=== PATIENT | female | born 1950 | race Caucasian/White ===

== ENCOUNTER 2017-11-09 23:46 | Inpatient (IN) | payer MEDICARE, BC ==
[~2017-11-09] VITALS: Ht 157.5 cm; Wt 48.0 kg
[~2017-11-09 23:46] MED LIST: ASPI-1053 PO; ATOR10TA PO; BACL20TA PO; ESTR2TAB6 PO; FLUO20CA39 PO; GABA600T2 PO; MULT-1179 PO; PANT20TA3 PO; POTA99TA18 PO; TRAZ50TA54 PO
[2017-11-10] VITALS (24 sets, daily range): BP systolic 94–139; BP diastolic 50–79
[2017-11-10] MEDS ORDERED: ondansetron/PF 4mg/2ml inj IV ONE (00:10)
[2017-11-10] MEDS: morphine 2 MG/ML inj. syringe IV PRN ×3 (00:37→11:55)
[2017-11-10 00:52] LABS: PARTIAL THROMBOPLASTIN TIME 25 SECONDS (22-32); PROTHROMBIN TIME 10.4 SECONDS (9.0-12.0)
[2017-11-10 00:55] LABS: ANION GAP 6 (8-16); CHLORIDE 106 MMOL/L (99-107); GLUCOSE 89 MG/DL (70-104); POTASSIUM 4.1 MMOL/L (3.5-5.1); SODIUM 141 MMOL/L (135-145); TOTAL CARBON DIOXIDE 28.6 MMOL/L (24-32)
[2017-11-10 00:56] LABS: ALANINE AMINOTRANSFERASE 22 U/L (12-78); ALBUMIN 3.2 G/DL (3.4-5.0); ALKALINE PHOSPHATASE 68 IU/L (46-116); ASPARTATE AMINO TRANSFERASE 22 U/L (10-37); BILIRUBIN,TOTAL 0.2 MG/DL (0.1-1.0); BLOOD UREA NITROGEN 16 MG/DL (7-18); BUN/CREATININE RATIO 17.8 (6.6-38.0); CALCIUM 8.1 MG/DL (8.5-10.1); TOTAL PROTEIN 6.3 G/DL (6.4-8.2); eGFR 63 ML/MIN
[2017-11-10 00:57] LABS: BASOPHILS % (AUTO) 0.4 % (0-1); EOSINOPHILS # (AUTO) 0.2 X10'3 (0-0.9); EOSINOPHILS % (AUTO) 1.9 % (0-6); HEMATOCRIT 36.4 % (35.0-45.0); HEMOGLOBIN 12.1 g/dl (12.0-16.0); LYMPHOCYTES # (AUTO) 1.7 X10'3 (1.1-4.8); LYMPHOCYTES % (AUTO) 18.1 % (21-51); MEAN CORPUSCULAR HEMOGLOBIN 31.3 PG (27.0-31.0); MEAN CORPUSCULAR HGB CONC 33.4 % (33.0-36.5); MEAN CORPUSCULAR VOLUME 93.7 FL (78-98); MEAN PLATELET VOLUME 9.1 FL (7.4-10.4); MONOCYTES # (AUTO) 0.7 X10'3 (0-0.9); MONOCYTES % (AUTO) 7.6 % (2-12); NEUTROPHILS # (AUTO) 6.6 X10'3 (1.8-7.7); PLATELET COUNT 218 X10'3 (140-440); RED BLOOD COUNT 3.88 X10'6 (4.20-5.60); RED CELL DISTRIBUTION WIDTH 13.3 % (11.5-14.5); WHITE BLOOD COUNT 9.2 X10'3 (4.5-11.0)
[2017-11-10] MEDS ORDERED: heparin 10,000 units/1 ML INJ IV PRN (02:30)
[2017-11-10] MEDS ORDERED: heparin 10,000 units/1 ML INJ IV ONE (02:30)
[2017-11-10] MEDS ORDERED: normal saline 1000ml 1,000 ML IV SCH (02:41)
[2017-11-10] MEDS ORDERED: mag hydrox/Alum hydrox/simeth 30ml oral suspension PO PRN (02:45)
[2017-11-10] MEDS ORDERED: diphenhydrAMINE 25mg capsule PO PRN (02:45)
[2017-11-10] MEDS ORDERED: acetaminophen 325mg tablet PO PRN ×2 (02:45)
[2017-11-10] MEDS ORDERED: HYDROmorphone 1 mg/ml syringe IV PRN ×2 (02:45)
[2017-11-10] MEDS ORDERED: metoclopramide 5 mg/ml inj IV PRN (02:45)
[2017-11-10] MEDS ORDERED: bisacodyl 10mg suppository rectal RC PRN (02:45)
[2017-11-10] MEDS ORDERED: diphenhydrAMINE 50 mg/ml inj IV PRN (02:45)
[2017-11-10] MEDS ORDERED: HYDROcodone/acetaminophen 5mg/325mg tablet PO PRN (02:45)
[2017-11-10] MEDS ORDERED: acetaminophen 650mg rectal suppository RC PRN (02:45)
[2017-11-10] MEDS ORDERED: magnesium hydroxide 30ml (MOM) UD suspension PO PRN (02:45)
[2017-11-10] MEDS ORDERED: ondansetron/PF 4mg/2ml inj IV PRN (02:45)
[2017-11-10] MEDS ORDERED: morphine 2 MG/ML inj. syringe IV PRN ×2 (02:45)
[2017-11-10 03:20] LABS: MAGNESIUM 1.7 MG/DL (1.5-2.4)
[2017-11-10] MEDS ORDERED: LIDOcaine 1% 30ml vial 30 ML ONE (06:08)
[2017-11-10] MEDS ORDERED: iohexol 350MG/ML 100ml bottle IV ONE (06:09)
[2017-11-10] MEDS ORDERED: heparin 1,000 UNITS/NS 500ml 500 ML ONE (06:09)
[2017-11-10] MEDS ORDERED: fentaNYL/PF 50MCG/1 ML 2ML syringe ONE (06:23)
[2017-11-10] MEDS ORDERED: midazolam 2 mg/2 ml injection ONE (06:23)
[2017-11-10 06:29] LABS: CLARITY,URINE SLIGHTLY CLOUDY (Clear); COLOR,URINE YELLOW (Yellow); GLUCOSE, URINE NEGATIVE (Neg); KETONES,URINE NEGATIVE (Neg); LEUKOCYTE ESTERASE ,URINE NEGATIVE (Neg); NITRITES, URINE NEGATIVE (Neg); OCCULT BLOOD,URINE NEGATIVE (Neg); PH,URINE 5.5 (4.8-8.0); PROTEIN,URINE NEGATIVE (Neg); UROBILINOGEN,URINE 0.2 E.U/dL (0.2-1.0)
[2017-11-10 06:37] LABS: UA COLLECTION TYPE CLN CATCH MIDSTREAM
[2017-11-10 06:39] LABS: BACTERIA,URINE 2+ /HPF (Neg); MUCUS STRANDS FEW /LPF (Neg); RBC,URINE 0-2 /HPF (0-2); SQUAMOUS EPITHELIAL CELL,UR MANY /LPF (FEW); WBC,URINE 0-4 /HPF (0-4)
[2017-11-10] MEDS ORDERED: heparin 1,000unit/ml 10ml vial 10 ML ONE (06:45)
[2017-11-10] MEDS ORDERED: OXAZEpam 15mg capsule PO PRN (07:35)
[2017-11-10] MEDS ORDERED: proCHLORperazine 10 MG/2 ml inj IV PRN (07:40)
[2017-11-10] MEDS ORDERED: HYDROmorphone 2mg/ml vial IV PRN (07:40)
[2017-11-10] MEDS ORDERED: baclofen 10mg tablet PO SCH (08:00)
[2017-11-10] MEDS ORDERED: aspirin 81mg tab.chew PO SCH (08:00)
[2017-11-10] MEDS ORDERED: docusate sod 100mg capsule PO SCH (08:00)
[2017-11-10] MEDS ORDERED: pantoprazole 40 MG vial IV SCH (08:00)
[2017-11-10] MEDS ORDERED: atorvastatin 10mg tablet PO SCH (08:00)
[2017-11-10] MEDS ORDERED: gabapentin 300mg capsule PO SCH (08:00)
[2017-11-10] MEDS ORDERED: FLUoxetine 20mg capsule PO SCH (08:00)
[2017-11-10] MEDS: HYDROcodone/acetaminophen 10/325mg tab PO PRN ×2 (10:05→16:02)
[2017-11-10] MEDS ORDERED: traZODone 50mg tablet PO SCH (21:00)
[2017-11-10] MEDS ORDERED: temazepam 15mg capsule PO PRN (21:00)
== END 2017-11-10 16:58 | disposition home or self-care (01) | DRG 253 ==
LOC: ER 23:47 → ED HOLD 11-10 02:41 → S STAY 11-10 14:49
PROVIDERS: ADMIT Family Medicine; ATTEND Family Medicine
PROC: 047K3ZZ Dilation of Right Femoral Artery, Percutaneous Approach (ICD-10-PCS; principal; 2017-11-10)
DX: T81.718A Complication of other artery following a procedure, not elsewhere classified, initial encounter (principal); I74.3 Embolism and thrombosis of arteries of the lower extremities; F32.9 Major depressive disorder, single episode, unspecified; I25.10 Atherosclerotic heart disease of native coronary artery without angina pectoris; G89.29 Other chronic pain; M54.9 Dorsalgia, unspecified; Z90.710 Acquired absence of both cervix and uterus; Z95.0 Presence of cardiac pacemaker; Z95.1 Presence of aortocoronary bypass graft; Z79.82 Long term (current) use of aspirin; Z79.899 Other long term (current) drug therapy; Z87.891 Personal history of nicotine dependence; Z82.3 Family history of stroke; Z83.3 Family history of diabetes mellitus; Z82.61 Family history of arthritis; Z82.49 Family history of ischemic heart disease and other diseases of the circulatory system; Y92.89 Other specified places as the place of occurrence of the external cause
CPT/HCPCS: 36140; 36415; 37224; 71045; 80053; 81001; 83735; 83880; 85025; 85610; 85730; 93005; 93922; 93926; 99152; 99153; A4620; A6257; A6449; C1725; C1729; C1769; C1894; J1170; J1644; J2250; J2270; J2405; J3010; J3490; J7030; Q9967

== ENCOUNTER 2017-11-25 00:26 | Inpatient (IN) | payer MEDICARE, BC ==
[2017-11-25] VITALS (16 sets, daily range): BP systolic 85–144; BP diastolic 48–69
[~2017-11-25] VITALS: Ht 157.5 cm; Wt 50.3 kg
[2017-11-25] MEDS ORDERED: nitroGLYCERIN 0.4mg SUBLingual tab SL PRN ×2 (00:45→07:35)
[2017-11-25] MEDS ORDERED: LORazepam 2 mg/ml vial IV ONE (00:45)
[2017-11-25] MEDS ORDERED: morphine 2 MG/ML inj. syringe IV ONE (00:45)
[2017-11-25] MEDS ORDERED: ondansetron/PF 4mg/2ml inj IV ONE (00:45)
[2017-11-25 01:27] LABS: PARTIAL THROMBOPLASTIN TIME 26 SECONDS (22-32); PROTHROMBIN TIME 10.2 SECONDS (9.0-12.0)
[2017-11-25 01:39] LABS: BASOPHILS # (AUTO) 0.1 X10'3 (0-0.2); BASOPHILS % (AUTO) 0.6 % (0-1); EOSINOPHILS # (AUTO) 0.1 X10'3 (0-0.9); EOSINOPHILS % (AUTO) 1.2 % (0-6); HEMATOCRIT 33.7 % (35.0-45.0); HEMOGLOBIN 11.9 g/dl (12.0-16.0); LYMPHOCYTES # (AUTO) 3.5 X10'3 (1.1-4.8); LYMPHOCYTES % (AUTO) 35.7 % (21-51); MEAN CORPUSCULAR HEMOGLOBIN 32.4 PG (27.0-31.0); MEAN CORPUSCULAR HGB CONC 35.4 % (33.0-36.5); MEAN CORPUSCULAR VOLUME 91.6 FL (78-98); MEAN PLATELET VOLUME 8.7 FL (7.4-10.4); MONOCYTES # (AUTO) 0.4 X10'3 (0-0.9); MONOCYTES % (AUTO) 3.9 % (2-12); NEUTROPHILS # (AUTO) 5.8 X10'3 (1.8-7.7); NEUTROPHILS % (AUTO) 58.6 % (42-75); PLATELET COUNT 338 X10'3 (140-440); RED BLOOD COUNT 3.68 X10'6 (4.20-5.60); RED CELL DISTRIBUTION WIDTH 12.5 % (11.5-14.5); WHITE BLOOD COUNT 9.9 X10'3 (4.5-11.0)
[2017-11-25 01:42] LABS: ALANINE AMINOTRANSFERASE 16 U/L (12-78); ALBUMIN 3.2 G/DL (3.4-5.0); ALBUMIN/GLOBULIN RATIO 0.9 (1.1-1.5); ALKALINE PHOSPHATASE 71 IU/L (46-116); ANION GAP 16 (8-16); ASPARTATE AMINO TRANSFERASE 21 U/L (10-37); BILIRUBIN,TOTAL 0.3 MG/DL (0.1-1.0); BLOOD UREA NITROGEN 13 MG/DL (7-18); BUN/CREATININE RATIO 17.8 (6.6-38.0); CALCIUM 8.8 MG/DL (8.5-10.1); CHLORIDE 105 MMOL/L (99-107); CREATININE 0.73 MG/DL (0.40-0.90); GLUCOSE 90 MG/DL (70-104); MAGNESIUM 1.7 MG/DL (1.5-2.4); POTASSIUM 3.9 MMOL/L (3.5-5.1); SODIUM 144 MMOL/L (135-145); TOTAL CARBON DIOXIDE 23.5 MMOL/L (24-32); TOTAL PROTEIN 6.7 G/DL (6.4-8.2); eGFR 80 ML/MIN
[2017-11-25] MEDS: normal saline 1000ml 1,000 ML IV SCH ×2 (03:04→16:24)
[2017-11-25] MEDS ORDERED: potassium Cl 20 mEq SR tablet PO PRN ×2 (03:05)
[2017-11-25] MEDS ORDERED: acetaminophen 325mg tablet PO PRN (03:05)
[2017-11-25] MEDS ORDERED: ipratropium/albuterol 3ml nebule NEB PRN (03:05)
[2017-11-25] MEDS ORDERED: magnesium Cl slow-release 64mg tablet PO PRN (03:05)
[2017-11-25] MEDS ORDERED: magnesium hydroxide 30ml (MOM) UD suspension PO PRN (03:05)
[2017-11-25] MEDS ORDERED: albuterol 2.5 MG/3 ML nebule NEB PRN (03:05)
[2017-11-25] MEDS ORDERED: mag hydrox/Alum hydrox/simeth 30ml oral suspension PO PRN (03:05)
[2017-11-25] MEDS ORDERED: morphine 2 MG/ML inj. syringe IV PRN ×2 (03:05)
[2017-11-25] MEDS ORDERED: magnesium 2GM in 50ml NS 50 ML IV PRN (03:05)
[2017-11-25] MEDS ORDERED: magnesium 4gm in 100ml NS 100 ML IV PRN (03:05)
[2017-11-25] MEDS ORDERED: potassium Cl 40MEQ/NS 500ml 500 ML IV PRN ×2 (03:05)
[2017-11-25] MEDS ORDERED: ondansetron/PF 4mg/2ml inj IV PRN (03:05)
[2017-11-25] MEDS ORDERED: enoxaparin 60mg/0.6ml syringe SUBCUT SCH (03:22)
[2017-11-25] MEDS ORDERED: pantoprazole 40mg Tablet.DR PO SCH (07:30)
[2017-11-25] MEDS ORDERED: aminophylline 250mg/10ml inj. IV PRN (07:35)
[2017-11-25] MEDS ORDERED: metoprolol tartrate 1mg/ml inj IV PRN (07:35)
[2017-11-25] MEDS ORDERED: regadenoson 0.4mg/5ml syringe IV ONE ×2 (07:35→10:23)
[2017-11-25] MEDS ORDERED: FLUoxetine 20mg capsule PO SCH (08:00)
[2017-11-25] MEDS ORDERED: aspirin 81mg tab.chew PO SCH (08:00)
[2017-11-25] MEDS ORDERED: K and/or MAG REPLACEMENT MC SCH (08:00)
[2017-11-25] MEDS ORDERED: atorvastatin 10mg tablet PO SCH (08:00)
[2017-11-25] MEDS ORDERED: HYDROcodone/acetaminophen 10/325mg tab PO PRN (08:15)
[2017-11-25] MEDS: baclofen 10mg tablet PO SCH ×2 (08:42→13:41)
[2017-11-25] MEDS: gabapentin 300mg capsule PO SCH ×2 (08:42→13:41)
[2017-11-25] MEDS ORDERED: aminophylline inj. 0 ML IV ONE (10:23)
[2017-11-25] MEDS ORDERED: normal saline 500ml IV soln 500 ML IV ONE ×2 (11:40→12:10)
[2017-11-25] MEDS ORDERED: LORA1TAB PO (16:59)
[2017-11-25] MEDS ORDERED: NITR0.4T51 SL (16:59)
[2017-11-25] MEDS ORDERED: traZODone 50mg tablet PO SCH (21:00)
[2017-11-26] MEDS ORDERED: enoxaparin 40mg/0.4ml syringe SUBCUT SCH (08:00)
== END 2017-11-25 19:00 | disposition home or self-care (01) | DRG 69 ==
LOC: ER 00:27 → PCU 3S 03:04
PROVIDERS: ADMIT Internal Medicine; ATTEND Family Medicine
PROC: 4A02XM4 Measurement of Cardiac Total Activity, External Approach (ICD-10-PCS; principal; 2017-11-25)
PROC: 3E073KZ Introduction of Other Diagnostic Substance into Coronary Artery, Percutaneous Approach (ICD-10-PCS; 2017-11-25)
DX: G45.8 Other transient cerebral ischemic attacks and related syndromes (principal); I95.9 Hypotension, unspecified; R07.89 Other chest pain; I25.10 Atherosclerotic heart disease of native coronary artery without angina pectoris; E78.5 Hyperlipidemia, unspecified; F32.9 Major depressive disorder, single episode, unspecified; F41.9 Anxiety disorder, unspecified; G89.29 Other chronic pain; M54.5 Low back pain; I10 Essential (primary) hypertension; M19.90 Unspecified osteoarthritis, unspecified site; I70.8 Atherosclerosis of other arteries; K21.9 Gastro-esophageal reflux disease without esophagitis; Z90.710 Acquired absence of both cervix and uterus; Z95.0 Presence of cardiac pacemaker; Z95.1 Presence of aortocoronary bypass graft; Z79.82 Long term (current) use of aspirin; Z79.899 Other long term (current) drug therapy; Z86.73 Personal history of transient ischemic attack (TIA), and cerebral infarction without residual deficits; Z87.891 Personal history of nicotine dependence; Z82.61 Family history of arthritis; Z82.3 Family history of stroke; Z82.49 Family history of ischemic heart disease and other diseases of the circulatory system; Z83.3 Family history of diabetes mellitus
CPT/HCPCS: 36415; 70450; 71045; 78452; 80053; 82948; 83735; 83880; 84484; 85025; 85610; 85730; 93005; 93017; 93306; 94760; A9500; J0280; J1650; J2060; J2270; J2405; J7030

== ENCOUNTER 2017-11-27 17:55 | Emergency (ER) | payer MEDICARE, OTHER ==
[~2017-11-27] VITALS: Ht 157.5 cm; Wt 46.8 kg
[~2017-11-27 17:55] MED LIST changes: -ESTR2TAB6 PO; +LORA1TAB PO; +NITR0.4T51 SL
[2017-11-27] MEDS ORDERED: pantoprazole 40 MG vial IV ONE (21:05)
[2017-11-27] MEDS ORDERED: HYDROmorphone 1 mg/ml syringe IV ONE (21:05)
[2017-11-27] MEDS ORDERED: normal saline 1000ML IV soln IVB ONE (21:05)
[2017-11-27] MEDS ORDERED: ondansetron/PF 4mg/2ml inj IV ONE (21:05)
[2017-11-27] MEDS ORDERED: normal saline 1000ml 1,000 ML IV ONE (21:05)
[2017-11-27] MEDS ORDERED: HYDROmorphone inj. 0.5 MG/0.5 ML DISP.SYRIN ONE (21:26)
[2017-11-27 22:14] LABS: BASOPHILS % (AUTO) 0.3 % (0-1); EOSINOPHILS # (AUTO) 0.2 X10'3 (0-0.9); EOSINOPHILS % (AUTO) 1.8 % (0-6); HEMATOCRIT 34.7 % (35.0-45.0); HEMOGLOBIN 11.8 g/dl (12.0-16.0); LYMPHOCYTES # (AUTO) 1.7 X10'3 (1.1-4.8); LYMPHOCYTES % (AUTO) 15.2 % (21-51); MEAN CORPUSCULAR HEMOGLOBIN 31.5 PG (27.0-31.0); MEAN CORPUSCULAR HGB CONC 34.1 % (33.0-36.5); MEAN CORPUSCULAR VOLUME 92.4 FL (78-98); MEAN PLATELET VOLUME 8.3 FL (7.4-10.4); MONOCYTES # (AUTO) 0.5 X10'3 (0-0.9); MONOCYTES % (AUTO) 4.4 % (2-12); NEUTROPHILS # (AUTO) 8.9 X10'3 (1.8-7.7); NEUTROPHILS % (AUTO) 78.3 % (42-75); PLATELET COUNT 247 X10'3 (140-440); RED BLOOD COUNT 3.76 X10'6 (4.20-5.60); RED CELL DISTRIBUTION WIDTH 13.6 % (11.5-14.5); WHITE BLOOD COUNT 11.4 X10'3 (4.5-11.0)
[2017-11-27] MEDS ORDERED: iohexol 300mg/ml 100ml inj. ONE (22:28)
[2017-11-27 22:29] LABS: ALANINE AMINOTRANSFERASE 16 U/L (12-78); ALBUMIN 2.9 G/DL (3.4-5.0); ALKALINE PHOSPHATASE 59 IU/L (46-116); ANION GAP 11 (8-16); ASPARTATE AMINO TRANSFERASE 18 U/L (10-37); BILIRUBIN,TOTAL 0.4 MG/DL (0.1-1.0); BLOOD UREA NITROGEN 13 MG/DL (7-18); BUN/CREATININE RATIO 19.1 (6.6-38.0); CHLORIDE 107 MMOL/L (99-107); CREATININE 0.68 MG/DL (0.40-0.90); GLUCOSE 90 MG/DL (70-104); LIPASE 161 U/L (73-393); POTASSIUM 3.5 MMOL/L (3.5-5.1); SODIUM 143 MMOL/L (135-145); TOTAL CARBON DIOXIDE 25.3 MMOL/L (24-32); TOTAL PROTEIN 5.9 G/DL (6.4-8.2); eGFR 87 ML/MIN
[2017-11-27] MEDS ORDERED: METR500T4 PO (23:31)
[2017-11-27] MEDS ORDERED: metroNIDAZOLE 500mg tablet PO ONE (23:35)
[2017-11-27 23:58] VITALS: BP 104/49
== END 2017-11-28 00:03 | disposition home or self-care (01) ==
LOC: ER 17:56
DX: K52.9 Noninfective gastroenteritis and colitis, unspecified (principal); R10.84 Generalized abdominal pain; R10.13 Epigastric pain; R10.12 Left upper quadrant pain; R10.32 Left lower quadrant pain; I25.10 Atherosclerotic heart disease of native coronary artery without angina pectoris; K21.9 Gastro-esophageal reflux disease without esophagitis; G89.29 Other chronic pain; Z95.1 Presence of aortocoronary bypass graft; Z90.710 Acquired absence of both cervix and uterus; Z95.0 Presence of cardiac pacemaker; Z98.890 Other specified postprocedural states; Z79.82 Long term (current) use of aspirin; Z79.899 Other long term (current) drug therapy; Z79.02 Long term (current) use of antithrombotics/antiplatelets
CPT/HCPCS: 36415; 74177; 80053; 83690; 85025; 93005; 96361; 96374; 96375; 99285; C9113; J1170; J2405; J3490; J7030; Q9967

== ENCOUNTER 2018-08-17 01:08 | Emergency (ER) | payer MEDICARE, MEDICAID ==
[~2018-08-17] VITALS: Ht 154.9 cm; Wt 52.0 kg
[~2018-08-17 01:08] MED LIST changes: -LORA1TAB PO; -NITR0.4T51 SL
[2018-08-17] MEDS ORDERED: TETanus/Pertussis (Acell)/Diphther VAC/PF (Tdap-Adult) 0.5ml syringe IMVAC ONE (02:30)
[2018-08-17 06:51] VITALS: BP 112/59
== END 2018-08-17 06:46 | disposition home or self-care (01) ==
LOC: ER 01:08
DX: S00.01XA Abrasion of scalp, initial encounter (principal); F10.129 Alcohol abuse with intoxication, unspecified; M54.2 Cervicalgia; R51 Headache; I25.10 Atherosclerotic heart disease of native coronary artery without angina pectoris; K21.9 Gastro-esophageal reflux disease without esophagitis; G89.29 Other chronic pain; Z95.1 Presence of aortocoronary bypass graft; Z90.710 Acquired absence of both cervix and uterus; Z95.0 Presence of cardiac pacemaker; Z98.890 Other specified postprocedural states; Z79.82 Long term (current) use of aspirin; Z79.899 Other long term (current) drug therapy; W18.49XA Other slipping, tripping and stumbling without falling, initial encounter; Y93.89 Activity, other specified; Y92.89 Other specified places as the place of occurrence of the external cause; Y99.9 Unspecified external cause status; Y90.9 Presence of alcohol in blood, level not specified
CPT/HCPCS: 70450; 72125; 90471; 90715; 99284

== ENCOUNTER 2019-07-15 18:03 | Emergency (ER) | payer MEDICARE, MEDICAID ==
[~2019-07-15] VITALS: Ht 157.5 cm; Wt 53.2 kg
[~2019-07-15 18:03] MED LIST changes: +EST1T PO; +GABA600T13 PO; -GABA600T2 PO; +LORA1TAB PO; -POTA99TA18 PO
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
[2019-07-15] MEDS ORDERED: HYDROcodone/acetaminophen 5mg/325mg tablet PO ONE (18:35)
[2019-07-15] MEDS ORDERED: orphenadrine citrate 60mg/2ml inj. IM ONE (18:35)
[2019-07-15] MEDS ORDERED: acetaminophen 325mg tablet PO ONE (18:35)
[2019-07-15] MEDS ORDERED: ondansetron 4mg rapidly disintigrating tab PO ONE (18:35)
[2019-07-15] MEDS ORDERED: ketorolac trometh inj. 60 MG/2 ML VIAL IM ONE (18:35)
--- NOTE | 2019-07-15 19:14 | NUR ---
PT TO XRAY WITH [employer] TECH
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
--- NOTE | 2019-07-15 20:32 | NUR ---
[facility] DEPT STASTED THEY WOULD BE CONTACTING THE PATIENT IN THE NECT 24-[address] KAUR AWARE . NOTIFIED PATIENT THAT SHE WILL NEED TO RECALL AND PROVIDE DETAILS WHEN OFFICIER PHONE HER.
[2019-07-15] MEDS ORDERED: morphine 4 MG/ML inj SYRINge IM ONE (20:35)
[2019-07-15] MEDS ORDERED: CYCL-1 PO (20:36)
[2019-07-15] MEDS ORDERED: HYDR-3965 PO (20:36)
--- NOTE | 2019-07-15 21:04 | NUR ---
PT ARRANGING A RIDE HOME PRIOR TO PAIN MEDICATION DELIVERED BEFORE DISCHARGE . STATES SHE WILL MAKE A FEW CALLS BEFORE SHE TAKES MEDICINE.
[2019-07-15 21:38] VITALS: BP 113/49
== END 2019-07-15 21:39 | disposition home or self-care (01) ==
LOC: ER 18:04
DX: M54.5 Low back pain (principal); G89.29 Other chronic pain; I25.10 Atherosclerotic heart disease of native coronary artery without angina pectoris; K21.9 Gastro-esophageal reflux disease without esophagitis; Z95.1 Presence of aortocoronary bypass graft; Z90.710 Acquired absence of both cervix and uterus; Z95.0 Presence of cardiac pacemaker; Z98.890 Other specified postprocedural states; Z79.82 Long term (current) use of aspirin; Z79.899 Other long term (current) drug therapy
CPT/HCPCS: 72100; 96372; 99284; J1885; J2270; J2360; 99283

== ENCOUNTER 2021-03-26 05:13 | Day surgery (SDC) | payer BC, MEDICAID ==
[2021-03-22 09:50] LABS: CLARITY,URINE CLEAR (Clear); COLOR,URINE STRAW (Yellow); GLUCOSE, URINE NEGATIVE (Neg); KETONES,URINE NEGATIVE (Neg); LEUKOCYTE ESTERASE ,URINE NEGATIVE (Neg); NITRITES, URINE NEGATIVE (Neg); OCCULT BLOOD,URINE TRACE-INTACT (Neg); PH,URINE 5.5 (4.8-8.0); PROTEIN,URINE NEGATIVE (Neg); UROBILINOGEN,URINE 0.2 E.U/dL (0.2-1.0)
[2021-03-22 10:06] LABS: BASOPHILS % (AUTO) 0.7 % (0-1); EOSINOPHILS # (AUTO) 0.2 X10'3 (0-0.9); EOSINOPHILS % (AUTO) 2.2 % (0-6); LYMPHOCYTES # (AUTO) 1.3 X10'3 (1.1-4.8); LYMPHOCYTES % (AUTO) 18.7 % (21-51); MEAN CORPUSCULAR HEMOGLOBIN 30.8 PG (27.0-31.0); MEAN CORPUSCULAR HGB CONC 32.8 g/dL (33.0-36.5); MEAN CORPUSCULAR VOLUME 93.9 FL (78-98); MEAN PLATELET VOLUME 8.7 FL (7.4-10.4); MONOCYTES # (AUTO) 0.4 X10'3 (0-0.9); MONOCYTES % (AUTO) 5.5 % (2-12); NEUTROPHILS % (AUTO) 72.9 % (42-75); PRE OP HEMATOCRIT 40.5 % (35.0-45.0); PRE OP HEMOGLOBIN 13.3 g/dL (12.0-16.0); PRE OP PLATELET COUNT 253 X10'3 (140-440); RED BLOOD COUNT 4.31 X10'6 (4.20-5.60); RED CELL DISTRIBUTION WIDTH 14.6 % (11.5-14.5)
[2021-03-22 10:08] LABS: UA COLLECTION TYPE CLN CATCH MIDSTREAM
[2021-03-22 10:09] LABS: SQUAMOUS EPITHELIAL CELL,UR FEW /LPF (FEW)
[2021-03-22 10:10] LABS: PRE OP PROTIME 10.8 SECONDS (9.0-12.0)
[2021-03-22 10:10] LABS: BACTERIA,URINE FEW /HPF (Neg); RBC,URINE 0-2 /HPF (0-2); TRANSITIONAL EPI CELLS,URINE FEW /HPF; WBC,URINE 0-4 /HPF (0-4)
[2021-03-22 10:14] LABS: ALBUMIN 3.8 G/DL (3.4-5.0); ALBUMIN/GLOBULIN RATIO 1.1 (1.1-1.5); ALKALINE PHOSPHATASE 81 IU/L (46-116); BLOOD UREA NITROGEN 12 MG/DL (7-18); BUN/CREATININE RATIO 15.4 (6.6-38.0); CALCIUM 9.3 MG/DL (8.5-10.1); CHLORIDE 106 MMOL/L (99-107); CREATININE 0.78 MG/DL (0.40-0.90); PRE OP ALT 30 U/L (30-65); PRE OP ANION GAP 11 (8-16); PRE OP AST 32 U/L (10-37); PRE OP BILIRUB, TOTAL 0.3 MG/DL (0.0-1.0); PRE OP GLUCOSE 99 MG/DL (70-104); PRE OP POTASSIUM 3.8 MMOL/L (3.4-5.1); PRE OP SODIUM 141 MMOL/L (135-145); TOTAL CARBON DIOXIDE 24.4 MMOL/L (24-32); TOTAL PROTEIN 7.4 G/DL (6.4-8.2); eGFR 73 ML/MIN
[2021-03-22 10:35] LABS: HEMOGLOBIN A1C 5.5 % (4.5-6.2)
[~2021-03-26] VITALS: Ht 157.5 cm; Wt 59.0 kg
[2021-03-26] VITALS (9 sets, daily range): BP systolic 121–136; BP diastolic 14–77
[~2021-03-26 05:13] MED LIST changes: +ARIP5TAB60 PO; +DULO30CA52 PO; -EST1T PO; -FLUO20CA39 PO; -GABA600T13 PO; -LORA1TAB PO; -MULT-1179 PO; +PANT20TA18 PO; -PANT20TA3 PO; +ringers solution, lacted 1,000 ML IV SCH
[2021-03-26] MEDS ORDERED: famotidine 20mg tablet PO ONE (05:30)
[2021-03-26] MEDS ORDERED: cefazolin/dext.iso 2gm/100ml IV ONE (05:30)
[2021-03-26] MEDS ORDERED: metoprolol tartrate 12.5mg (1/2 tablet) PO ONE (05:30)
[2021-03-26] MEDS ORDERED: gabapentin 400mg capsule PO ONE (05:30)
[2021-03-26] MEDS ORDERED: LIDOcaine 1% (10mg/ml) 2ml vial ONE (05:51)
[2021-03-26] MEDS ORDERED: BUPIVAcaine/PF 2.5 mg/ml (0.25%) 30ml vial ONE (05:59)
[2021-03-26] MEDS ORDERED: sevoflurane 250ml liquid IH ONE (06:58)
[2021-03-26] MEDS ORDERED: fentaNYL/PF 50MCG/1 ML 2ML syringe ONE (07:04)
[2021-03-26] MEDS ORDERED: midazolam 1 mg/ML 2ml injection ONE (07:05)
[2021-03-26] MEDS ORDERED: labetalol 20mg/4ml (5mg/ml) syringe IV PRN ×2 (07:10→07:20)
[2021-03-26] MEDS ORDERED: morphine 4 MG/ML inj SYRINge IV PRN (07:10)
[2021-03-26] MEDS ORDERED: meperidine/PF 25mg/ml syringe IV PRN (07:10)
[2021-03-26] MEDS ORDERED: morphine 2 MG/ML inj. syringe IV PRN (07:10)
[2021-03-26] MEDS ORDERED: ondansetron/PF 4mg/2ml inj IV PRN (07:10)
[2021-03-26] MEDS ORDERED: acetaminophen 1,000mg/100ml IV 100 ML IV PRN (07:10)
[2021-03-26] MEDS ORDERED: hydrALAZINE 20mg/ml inj. IV PRN (07:10)
[2021-03-26] MEDS ORDERED: ringers solution, lacted 1,000 ML IV SCH (07:10)
[2021-03-26] MEDS ORDERED: proCHLORperazine 10 MG/2 ml inj IV PRN (07:10)
[2021-03-26] MEDS ORDERED: HYDROmorphone/PF 0.2 MG/ML SYRINGE IV PRN ×2 (07:10)
[2021-03-26] MEDS ORDERED: 0.9 % SODIUM CHLORIDE 10 ML VIAL ONE ×2 (07:37)
[2021-03-26] MEDS ORDERED: LIDOcaine 2% (20mg/ml) 5ml vial ONE (07:37)
[2021-03-26] MEDS ORDERED: ondansetron/PF 4mg/2ml inj ONE (07:37)
[2021-03-26] MEDS ORDERED: propofol inj 20 ML IV ONE (07:37)
[2021-03-26] MEDS ORDERED: phenylephrine 10mg/ml inj. ONE (07:37)
[2021-03-26] MEDS ORDERED: dexamethasone sod phosphate 4mg/ml inj. ONE (07:37)
[2021-03-26] MEDS ORDERED: ePHEDrine 50MG/ML INJ. ONE (07:37)
--- NOTE | 2021-03-26 08:04 | NUR ---
Received from OR via BIBI , accompanied by Anesthesiologist KATHERINE and report given by Anesthesiolgist. PATIENT WITH 20G PIV IN LEFT UE RUNNING LR AT 100. DENIES PAIN. LEFT CHEST WALL DRESSING IS CDI. PATIENT WITH 100% SATURATIONS ON 10L MASK. Addendum: 03/26/21 at 0818 by Amos Sharma RN, RN Amended: Links added.
--- NOTE | 2021-03-26 09:04 | NUR ---
ALL DISCHARGE CRITERIA HAS BEEN MET. VSS, PAIN AT A TOLERABLE LEVEL, VOIDING AND ABLE TO SAFELY AMBULATE AND TRANSFER SELF. IV TAKEN OUT WITHOUT ANY COMPLICATIONS. ALL DISCHARGE INSTRUCTIONS COVERED WITH PATIENT AND ALL QUESTIONS ANSWERED. PATIENT TAKEN OUT VIA WHEELCHAIR TO PERSONAL VEHICLE WHERE FAMILY/FRIEND DROVE PATIENT HOME. PATIENT AMBULATED SAFELY TO VEHICLE WHERE SIG OTHER ASHLEE DROVE HER HOME. Addendum: 03/26/21 at 0952 by Amos Sharma RN, RN Amended: Links added.
== END 2021-03-26 09:04 | disposition home or self-care (01) ==
LOC: PAS 05:13
PROVIDERS: ATTEND Thoracic Surgery (Cardiothoracic Vascular Surgery)
DX: T82.847A Pain due to cardiac prosthetic devices, implants and grafts, initial encounter (principal); Z20.822 Contact with and (suspected) exposure to COVID-19; Y83.8 Other surgical procedures as the cause of abnormal reaction of the patient, or of later complication, without mention of misadventure at the time of the procedure; Y92.89 Other specified places as the place of occurrence of the external cause; I49.5 Sick sinus syndrome; I25.10 Atherosclerotic heart disease of native coronary artery without angina pectoris; Z95.1 Presence of aortocoronary bypass graft; I50.9 Heart failure, unspecified
CPT/HCPCS: 33222; 36415; 71046; 80053; 81001; 82948; 83036; 85025; 85610; 85730; 86885; 86900; 86901; J1100; J2001; J2250; J2370; J2405; J2704; J3010; J3490; U0003; U0005; A4215; A4615; A4618; A6258; A7000; J7120